=== PATIENT | female | born 1960 | race Hispanic/Latino ===

== ENCOUNTER 2025-07-18 17:22 | Emergency (ER) | payer OTHER ==
[~2025-07-18] VITALS: Ht 162.6 cm; Wt 89.4 kg
[2025-07-18 18:30] VITALS: PULSE 80; RESP 16; TEMP 99.3
[2025-07-18] MEDS: ONDANSETRON HCL INJ 2MG/ML 2ML 2 MG/ML VIAL IV STA (19:38)
[2025-07-18] MEDS: Morphine 4mg INJECTION 4 MG/ML INJ IV ONE (19:38)
[2025-07-18 19:52] LABS: BASOPHILS % 0.3 % (0.0-1.0); EOSINOPHILS % 0.3 % (0.0-6.0); LYMPHOCYTES % 15.0 % (18.0-39.1); MONOCYTES % 6.6 % (4.4-11.3); NEUTROPHILS % 77.3 % (38.7-80.0); RED CELL DISTRIBUTION WIDTH 13.4 % (11.7-14.4)
[2025-07-18 20:11] LABS: EST GLOMERULAR FILTRATION RATE 97.0 ML/MIN (>=60)
[2025-07-18 22:59] VITALS: BP 132/68; PULSE 85; RESP 20; O2SAT 98
== END 2025-07-18 22:40 | disposition home or self-care (01) ==
LOC: ER 19:04
DX: G89.18 Other acute postprocedural pain (principal); Z96.651 Presence of right artificial knee joint; I10 Essential (primary) hypertension; E11.65 Type 2 diabetes mellitus with hyperglycemia; J45.909 Unspecified asthma, uncomplicated
CPT/HCPCS: 36415; 80048; 85025; 93971; 99284; J2270; J2405